=== PATIENT | male | born 1960 | race Caucasian/White ===

== ENCOUNTER 2017-06-02 14:49 | Emergency (ER) | payer OTHER ==
[2017-06-02] MEDS ORDERED: SODIUM CHLORIDE 0.9% 1,000 ML IV STA ×2 (15:00)
[2017-06-02] MEDS ORDERED: RX INFO: IV CONTRAST WAS GIVEN 1 EACH MISC MISCELLANE PRN (15:13)
[2017-06-02 15:14] LABS: Basophils % (A) 1 %; Eosinophils # (A) 0.1 k/uL (0-0.7); Eosinophils % (A) 2 %; HGB 15.4 gm/dL (13.0-17.5); Lymphocytes # (A) 1.8 k/uL (1.0-4.8); Lymphocytes % (A) 27 %; MCH 29.6 pg (25.0-35.0); MCHC 34.3 g/dL (31.0-37.0); MCV 86.4 fL (80.0-100.0); Mean Platelet Volume 7.5; Monocytes # (A) 0.5 k/uL (0-1.0); Monocytes % (A) 8 %; Neutrophils # (A) 4.2 k/uL (1.3-7.7); Neutrophils % (A) 61 %; Platelet Count 236 k/uL (150-450); RBC 5.21 m/uL (4.30-5.90); RDW 12.4 % (11.5-15.5); WBC 6.9 k/uL (3.8-10.6)
[2017-06-02 15:23] LABS: INR 1.1 (<1.2); Partial Thromboplastin Time 24.6 sec (22.0-30.0); Prothrombin Time 10.5 sec (9.0-12.0)
--- NOTE | 2017-06-02 15:23 | XR ---
EXAMINATION TYPE: XR pelvis AP view DATE OF EXAM: 06/02/2017 CLINICAL HISTORY: pain TECHNIQUE: Single view the pelvis is submitted. FINDINGS: No evidence for fracture, dislocation or bony lesion. Joint spaces are well-preserved. S I joints appear symmetric. IMPRESSION: 1. No acute fracture or dislocation seen. ICD 10 NO FRACTURE, INITIAL EVALUATION
[2017-06-02 15:25] LABS: ALT 22 U/L (21-72); AST 24 U/L (17-59); Albumin 4.8 g/dL (3.5-5.0); Alcohol <10 mg/dL; Alkaline Phosphatase 82 U/L (38-126); Amylase 67 U/L (30-110); Anion Gap 15 mmol/L; Blood Urea Nitrogen 19 mg/dL (9-20); Calcium 9.5 mg/dL (8.4-10.2); Carbon Dioxide 25 mmol/L (22-30); Chloride 105 mmol/L (98-107); Glucose 96 mg/dL (74-99); Lipase 101 U/L (23-300); Potassium 4.1 mmol/L (3.5-5.1); Sodium 145 mmol/L (137-145); Total Bilirubin 0.5 mg/dL (0.2-1.3); Total Protein 7.5 g/dL (6.3-8.2)
--- NOTE | 2017-06-02 15:25 | XR ---
EXAMINATION TYPE: XR chest 1V portable DATE OF EXAM: 06/02/2017 CLINICAL HISTORY: TECHNIQUE: Single frontal view of the chest is obtained. COMPARISON: None FINDINGS: There is no focal air space opacity, pleural effusion, or pneumothorax seen. The cardiac silhouette size is within normal limits. The osseous structures are intact. IMPRESSION: No acute process.
[2017-06-02 15:30] LABS: Glucose,Whole Blood 109 mg/dL (75-99)
[2017-06-02 15:44] LABS: Creatine Kinase 124 U/L (55-170)
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
[2017-06-02 15:57] LABS: Creatine Kinase MB 1.4 ng/mL (0.0-2.4); Troponin I <0.012 ng/mL (0.000-0.034)
[2017-06-02 16:51] LABS: Appearance,Urine Clear (Clear); Bilirubin,Urine Negative (Negative); Blood,Urine Negative (Negative); Color,Urine Light Yellow; Glucose,Urine (UA) Negative (Negative); Ketones,Urine Negative (Negative); Leukocyte Esterase,Urine Negative (Negative); Nitrite,Urine Negative (Negative); Protein,Urine Negative (Negative); Specific Gravity,Urine 1.042 (1.001-1.035); Urobilinogen,Urine <2.0 mg/dL (<2.0)
[2017-06-02 16:52] VITALS: BP 121/58; PULSE 64; RESP 16; TEMP 98.3
[2017-06-02 17:04] LABS: Amphetamine Screen,Urine Not Detected (NotDetected); Barbiturate Screen,Urine Not Detected (NotDetected); Benzodiazepines Screen,Urine Not Detected (NotDetected); Cocaine Screen,Urine Not Detected (NotDetected); Methadone Screen, Urine Not Detected (NotDetected); Opiate Screen,Urine Not Detected (NotDetected); Oxycodone Screen, Urine Not Detected (NotDetected); Phencyclidine Screen,Urine Not Detected (NotDetected); Tricyclic Antidepressant,Urine Not Detected (NotDetected); Urn Cannabinoid Scrn Not Detected (NotDetected)
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
== END 2017-06-02 16:51 | disposition home or self-care (01) ==
LOC: EC 14:49
DX: S31.115A Laceration without foreign body of abdominal wall, periumbilic region without penetration into peritoneal cavity, initial encounter (principal); R40.2412 Glasgow coma scale score 13-15, at arrival to emergency department; Z79.1 Long term (current) use of non-steroidal anti-inflammatories (NSAID); Z79.899 Other long term (current) drug therapy; W26.8XXA Contact with other sharp object(s), not elsewhere classified, initial encounter; Y92.69 Other specified industrial and construction area as the place of occurrence of the external cause
CPT/HCPCS: 36415; 93005; 86900; 86901; 80053; 82150; 82550; 82553; 83605; 83690; 84484; 85025; 85610; 85730; 86850; 81003; 80306; 80320; 72170; 71045; 74177; 99285; 96360; Q9967

== ENCOUNTER 2018-03-07 06:10 | Emergency (ER) | payer OTHER ==
[2018-03-07 06:22] VITALS: BP 145/81; RESP 18; TEMP 98
[2018-03-07] MEDS ORDERED: IPRATROPIUM-ALBUTEROL 3 ML NEB INHALATION STA (06:29)
[2018-03-07 06:38] VITALS: PULSE 70
--- NOTE | 2018-03-07 07:02 | XR ---
EXAMINATION TYPE: XR chest 2V DATE OF EXAM: 03/07/2018 HISTORY: Pain. REFERENCE: Previous study dated 06/02/2017. FINDINGS: The lungs are clear. Pleural space are clear. The heart is not enlarged. There is mild prom inence of the right hilum. IMPRESSION: MILD PROMINENCE OF THE RIGHT HILUM MAY BE SECONDARY TO PULMONARY ARTERY HYPERTENSION. NO OTHER ACUTE ABNORMALITY IS SEEN.
--- NOTE | 2018-03-07 07:19 | ED ---
URI HPI - General Chief Complaint: Upper Respiratory Infection Stated Complaint: Cough, Fever Time Seen by Provider: 03/07/18 07:04 Source: patient, RN notes reviewed Mode of arrival: ambulatory Limitations: no limitations - History of Present Illness Initial Comments: 57-year-old male presents emergency Department chief complaint cough and congestion fever bodyaches for 4 days. Patient states he felt miserable yesterday slightly improved today. Patient states that he was so weak he felt like he cannot come emergency department. Patient has been taking Motrin at home. Patient is concerned about possible pneumonia. Patient states cough is nonproductive. Denies any sick contacts. Denies ear pain, sore throat, neck pain or neck stiffness. - Related Data Home Medications Medication Instructions Recorded Confirmed Albuterol Inhaler [Ventolin Hfa 1 - 2 puff INHALATION RT-Q6H PRN 06/02/17 Inhaler] Levothyroxine Sodium [Synthroid] 200 mcg PO DAILY 06/02/17 06/02/17 Meloxicam [Mobic] 15 mg PO DAILY 06/02/17 06/02/17 Allergies Allergy/AdvReac Type Severity Reaction Status Date / Time acetaminophen AdvReac Rash/Hives Verified 03/07/18 06:23 Review of Systems ROS Statement: Those systems with pertinent positive or pertinent negative responses have been documented in the HPI. ROS Other: All systems not noted in ROS Statement are negative. Past Medical History Past Medical History: Asthma Additional Past Medical History / Comment(s): scarred lungs r/t "exposures" History of Any Multi-Drug Resistant Organisms: None Reported Past Surgical History: No Surgical Hx Reported Additional Past Surgical History / Comment(s): thyroidectomy, Past Psychological History: No Psychological Hx Reported Smoking Status: Never smoker Past Alcohol Use History: None Reported Past Drug Use History: None Reported General Exam Limitations: no limitations General appearance: alert, in no apparent distress Head exam: Present: atraumatic, normocephalic, normal inspection Eye exam: Present: normal appearance, PERRL, EOMI. Absent: scleral icterus, conjunctival injection, periorbital swelling ENT exam: Present: normal exam, normal oropharynx, mucous membranes moist, TM's normal bilaterally, normal external ear exam Neck exam: Present: normal inspection, full ROM. Absent: tenderness, meningismus, lymphadenopathy Respiratory exam: Present: normal lung sounds bilaterally. Absent: respiratory distress, wheezes, rales, rhonchi, stridor Cardiovascular Exam: Present: regular rate, normal rhythm, normal heart sounds. Absent: systolic murmur, diastolic murmur, rubs, gallop, clicks Skin exam: Present: warm, dry, intact, normal color. Absent: rash Course Vital Signs 03/07/18 03/07/18 03/07/18 06:16 06:29 06:38 Temperature 98.0 F Pulse Rate 66 70 Respiratory 18 18 Rate Blood Pressure 145/81 O2 Sat by Pulse 99 Oximetry 03/07/18 06:44 Temperature Pulse Rate 70 Respiratory Rate Blood Pressure O2 Sat by Pulse Oximetry Medical Decision Making - Medical Decision Making 57-year-old male presents emergency Department for cough congestion fever. Patient is a positive for influenza. Chest x-ray shows no evidence of infiltrate , shows evidence of dilated right hilum. Patient is out of the range of Tamiflu. Patient will be continue anti-inflammatories, increase fluids and return for any worsening symptoms - Lab Data Lab Results 03/07/18 Range/Units 06:30 Influenza Type A RNA Detected H (Not Detectd) Influenza Type B (PCR) Not Detected (Not Detectd) Disposition Clinical Impression: Influenza Disposition: HOME SELF-CARE Condition: Stable Instructions (If sedation given, give patient instructions): Influenza (ED) Additional Instructions: Please return to the Emergency Department if symptoms worsen or any other concerns. Is patient prescribed a controlled substance at d/c from ED?: No Referrals: [facility],Clinic [Primary Care Provider] - 1-2 days Time of Disposition: 07:19
== END 2018-03-07 07:43 | disposition home or self-care (01) ==
LOC: EC 06:10
DX: J10.1 Influenza due to other identified influenza virus with other respiratory manifestations (principal); J45.909 Unspecified asthma, uncomplicated; Z90.89 Acquired absence of other organs; Z79.890 Hormone replacement therapy; Z79.1 Long term (current) use of non-steroidal anti-inflammatories (NSAID); Z88.6 Allergy status to analgesic agent
CPT/HCPCS: 71046; 87502; 94640; 99284

== ENCOUNTER 2018-04-07 13:43 | Emergency (ER) | payer OTHER ==
[2018-04-07 13:52] VITALS: BP 121/74; PULSE 74; RESP 16; TEMP 98.3
[2018-04-07] MEDS ORDERED: PROPARACAINE 0.5% OPHTH DROPS 15 ML BTL BOTH EYES STA (13:56)
--- NOTE | 2018-04-07 14:45 | ED ---
General Adult HPI - General Chief complaint: Eye Problems Stated complaint: FB in lt eye Time Seen by Provider: 04/07/18 13:56 Source: patient, RN notes reviewed Mode of arrival: ambulatory Limitations: no limitations - History of Present Illness Initial comments: 57-year-old male presents to the emergency department for a chief complaint of possible dog care in the left eye. Patient states that about 2 hours ago he started to notice about 3 objects in his visual field that looks like hairs. Patient states he has not noticed this before. He states he believes he got dog hair in the left eye as it started when there was a dog on his lap. Patient denies any irritation or pain in the left eye. He denies any fevers or chills. He denies any pain with movement of the eye. He denies ever having any eye diagnoses. He denies wearing glasses or contact lenses. Patient has no other complaints at this time including shortness of breath, chest pain, abdominal pain, nausea or vomiting, headache, or visual changes. - Related Data Home Medications Medication Instructions Recorded Confirmed Albuterol Inhaler [Ventolin Hfa 1 - 2 puff INHALATION RT-Q6H PRN 06/02/17 Inhaler] Levothyroxine Sodium [Synthroid] 200 mcg PO DAILY 06/02/17 04/07/18 Meloxicam [Mobic] 15 mg PO DAILY 06/02/17 04/07/18 Allergies Allergy/AdvReac Type Severity Reaction Status Date / Time acetaminophen AdvReac Rash/Hives Verified 04/07/18 13:51 Review of Systems ROS Statement: Those systems with pertinent positive or pertinent negative responses have been documented in the HPI. ROS Other: All systems not noted in ROS Statement are negative. Past Medical History Past Medical History: Asthma Additional Past Medical History / Comment(s): scarred lungs r/t "exposures" History of Any Multi-Drug Resistant Organisms: None Reported Past Surgical History: No Surgical Hx Reported Additional Past Surgical History / Comment(s): thyroidectomy, Past Psychological History: No Psychological Hx Reported Smoking Status: Never smoker Past Alcohol Use History: None Reported Past Drug Use History: None Reported General Exam Limitations: no limitations General appearance: alert, in no apparent distress Head exam: Present: atraumatic, normocephalic, normal inspection Eye exam: Present: normal appearance, PERRL, EOMI. Absent: scleral icterus, conjunctival injection, periorbital swelling Expanded Eyelids: Normal Inspection: Bilateral (flipped lids, no FB in left eye) Pupils: Regular, Round: Bilateral Sclera/Conjunctival: Normal Inspection: Bilateral, Injection: Left (very minimal erythema) Anterior chamber: Normal Inspection: Bilateral Visual acuity (R) = 20/: 20 Visual acuity (L) = 20/: 70 IOP (R) in mmH IOP (L) in mmH IOP measured with: [employer]open ENT exam: Present: normal exam, mucous membranes moist Neck exam: Present: normal inspection. Absent: tenderness, meningismus, lymphadenopathy Respiratory exam: Present: normal lung sounds bilaterally. Absent: respiratory distress, wheezes, rales, rhonchi, stridor Cardiovascular Exam: Present: regular rate, normal rhythm, normal heart sounds. Absent: systolic murmur, diastolic murmur, rubs, gallop, clicks Neurological exam: Present: alert, oriented X3, CN II-XII intact Psychiatric exam: Present: normal affect, normal mood Course Vital Signs 04/07/18 13:49 Temperature 98.3 F Pulse Rate 74 Respiratory 16 Rate Blood Pressure 121/74 O2 Sat by Pulse 100 Oximetry Medical Decision Making - Medical Decision Making 57-year-old male with sudden onset of floaters in the left eye. Vitals are stable. Exam as documented. Dr. Antunez spoke with Dr. Quintero who stated to have patient come to his office before 3:15. This was at 1452. I discharged patient and he was out the door by 1455. Patient is aware of directions. I did state to drive carefully as it is snowing. Patient does feel safe driving with the floaters in his eye with an overall visual acuity of 20/15. Discussed returning here if he has any worsening symptoms. Disposition Clinical Impression: Vitreous floaters of left eye Disposition: HOME SELF-CARE Condition: Good Additional Instructions: Please go directly to Dr. Jara office. Return here if you have any worsening symptoms. Is patient prescribed a controlled substance at d/c from ED?: No Referrals: [facility],Clinic [Primary Care Provider] - 1-2 days Jose Quintero MD [STAFF PHYSICIAN] - 1-2 days Time of Disposition: 14:52
== END 2018-04-07 14:58 | disposition home or self-care (01) ==
LOC: EC 13:43
DX: H43.392 Other vitreous opacities, left eye (principal); J45.909 Unspecified asthma, uncomplicated; Z79.1 Long term (current) use of non-steroidal anti-inflammatories (NSAID); Z79.890 Hormone replacement therapy; Z88.8 Allergy status to other drugs, medicaments and biological substances
CPT/HCPCS: 99283

== ENCOUNTER 2019-09-04 13:35 | Emergency (ER) | payer OTHER ==
[2019-09-04 13:53] VITALS: BP 134/84; PULSE 78; RESP 16; TEMP 98.7
[2019-09-04] MEDS ORDERED: LIDOCAINE 1% INJ 10MG/ML (20 ML MDV) SQ ONE (14:04)
--- NOTE | 2019-09-04 14:41 | ED ---
General Adult HPI - General Chief complaint: Wound/Laceration Stated complaint: lt wrist lac Time Seen by Provider: 09/04/19 13:58 Source: patient, RN notes reviewed Mode of arrival: ambulatory Limitations: no limitations - History of Present Illness Initial comments: 58-year-old male presents to the emergency room for a chief of laceration. Patient was using a saw to cut down a small branch of a tree when it hit his left wrist. Patient states that only the dorsal aspect of the left wrist. Patient states it was bleeding so he came to the ER but was able to get it to stop bleeding and now does not think he wants stitches. Patient denies any difficulty moving the fingers or wrist. Patient is up-to-date on tetanus.Patient has no other complaints at this time including shortness of breath, chest pain, abdominal pain, nausea or vomiting, headache, or visual changes. - Related Data Home Medications Medication Instructions Recorded Confirmed Albuterol Inhaler (Mhu) [Ventolin 1 - 2 puff INHALATION RT-Q6H PRN 06/02/17 04/07/18 Hfa Inhaler] Levothyroxine Sodium [Synthroid] 200 mcg PO DAILY 06/02/17 04/07/18 Meloxicam [Mobic] 15 mg PO DAILY 06/02/17 04/07/18 Previous Rx's Medication Instructions Recorded Cephalexin [Keflex] 500 mg PO Q6HR 5 Days #20 cap 09/04/19 Allergies Allergy/AdvReac Type Severity Reaction Status Date / Time acetaminophen AdvReac Rash/Hives Verified 04/07/18 13:51 Review of Systems ROS Statement: Those systems with pertinent positive or pertinent negative responses have been documented in the HPI. ROS Other: All systems not noted in ROS Statement are negative. Past Medical History Past Medical History: Asthma Additional Past Medical History / Comment(s): scarred lungs r/t "exposures" History of Any Multi-Drug Resistant Organisms: None Reported Past Surgical History: No Surgical Hx Reported Additional Past Surgical History / Comment(s): thyroidectomy, Past Psychological History: No Psychological Hx Reported Past Alcohol Use History: None Reported Past Drug Use History: None Reported General Exam Limitations: no limitations General appearance: alert, in no apparent distress Head exam: Present: atraumatic, normocephalic, normal inspection Eye exam: Present: normal appearance, PERRL, EOMI. Absent: scleral icterus, conjunctival injection, periorbital swelling ENT exam: Present: normal exam, mucous membranes moist Neck exam: Present: normal inspection, full ROM. Absent: tenderness, meningismus, lymphadenopathy Respiratory exam: Present: normal lung sounds bilaterally. Absent: respiratory distress, wheezes, rales, rhonchi, stridor Cardiovascular Exam: Present: regular rate, normal rhythm, normal heart sounds. Absent: systolic murmur, diastolic murmur, rubs, gallop, clicks Extremities exam: Present: full ROM (Full range of motion of the left wrist in all digits of the left hand.), normal capillary refill (Capillary refill less than 2 seconds in the left hand, radial pulse 2+.), other (Patient has a 2 cm superficial laceration to the dorsum of the left wrist. I do not see any deep structure injury.). Absent: tenderness, pedal edema, joint swelling, calf tenderness Course Vital Signs 09/04/19 13:50 Temperature 98.7 F Pulse Rate 78 Respiratory 16 Rate Blood Pressure 134/84 O2 Sat by Pulse 97 Oximetry Procedures - Laceration Laceration #1 Consent Obtained: verbal consent Indication: laceration Site: hand Size (cm): 2 Description: linear Depth: simple, single layer Anesthetic Used: lidocaine 1% Anesthesia Technique: local infiltration Amount (mls): 4 Pre-repair: wound explored, irrigated extensively (With saline pressure irrigation), deep structures intact Type of Sutures: nylon Size of Sutures: 4-0 Number of Sutures: 4 Technique: simple, interrupted Patient Tolerated Procedure: well, no complications Medical Decision Making - Medical Decision Making as a 2 cm laceration on the dorsal aspect of the left wrist. Full range of motion of all joints. I do not suspect deep structure injury. I do not any tendon injury after thorough inspection of the laceration. Did recommend x-ray for foreign body however the patient adamantly refuses this. The wound was sutured with 4 simple interrupted sutures after careful irrigation. Patient will be started on Keflex as this was with a saw. He will return to the emergency room for any worsening symptoms. Discussed follow-up instructions. Disposition Clinical Impression: Laceration Disposition: HOME SELF-CARE Condition: Good Instructions (If sedation given, give patient instructions): Care For Your Stitches (ED), Laceration (ED) Additional Instructions: Please monitor for signs of infection. Return if you have redness, swelling, or drainage or any other worsening symptoms. Return in 7-10 days for suture removal. Prescriptions: Cephalexin [Keflex] 500 mg PO Q6HR 5 Days #20 cap Is patient prescribed a controlled substance at d/c from ED?: No Referrals: [facility],Clinic [Primary Care Provider] - 1-2 days Time of Disposition: 14:39
== END 2019-09-04 14:52 | disposition home or self-care (01) ==
LOC: EC 13:35
DX: S61.512A Laceration without foreign body of left wrist, initial encounter (principal); J45.909 Unspecified asthma, uncomplicated; Z79.890 Hormone replacement therapy; Z90.89 Acquired absence of other organs; Z88.6 Allergy status to analgesic agent; W26.8XXA Contact with other sharp object(s), not elsewhere classified, initial encounter
CPT/HCPCS: 99282; 12001; J2001